=== PATIENT | male | born 1960 | race Caucasian/White ===

== ENCOUNTER 2024-01-17 05:35 | Day surgery (SDC) | payer OTHER ==
[~2024-01-17 05:35] MED LIST: ADVAIR; ALTACE10 MG PO; ASPIR 8181 MG PO; GLUCOPHA PO; GLYBURIDE PO; LANTUS SOL100 UNIT/1; SINGULAIR10 MG PO; STIOLTO RESPIMAT4 GM; TIRZEPATIDE 10 MG; XIGDUO XR 5 MG1 EAC1; ZOCOR40 MG PO
[2024-01-17] MEDS ORDERED: CEFAZOLIN SODIUM 1,000 MG VIAL ONE (07:12)
[2024-01-17] MEDS ORDERED: BUPIVACAINE HCL/MPF 0.5% 30ML VIAL ONE (07:21)
[2024-01-17] MEDS ORDERED: TYLENOL ARTHRI650 MG PO (10:35)
[2024-01-17] MEDS ORDERED: TRAMADOL HCL50 MG PO (10:35)
[2024-01-17] MEDS ORDERED: MIRALAX17 GM PO (10:35)
[2024-01-17] MEDS ORDERED: KETO10TA2 PO (10:35)
[2024-01-17] MEDS ORDERED: METOPROLOL SUCCINATE 25 MG TAB.SR.24H PO ONE (12:15)
== END 2024-01-17 14:10 | disposition home or self-care (01) ==
LOC: CIR.AMB 05:35
PROVIDERS: ATTEND Surgery
DX: K40.90 Unilateral inguinal hernia, without obstruction or gangrene, not specified as recurrent (principal); Z53.8 Procedure and treatment not carried out for other reasons; I49.9 Cardiac arrhythmia, unspecified

== ENCOUNTER 2024-04-10 05:36 | Day surgery (SDC) | payer OTHER ==
[2024-04-03 13:08] VITALS: BP 127/82
[~2024-04-10 05:36] MED LIST changes: +KETO10TA2 PO; +MIRALAX17 GM PO; +TRAMADOL HCL50 MG PO; +TYLENOL ARTHRI650 MG PO
[2024-04-10] MEDS ORDERED: BUPIVACAINE HCL/MPF 0.5% 30ML VIAL ONE (07:09)
[2024-04-10] MEDS ORDERED: CEFAZOLIN SODIUM 1,000 MG VIAL ONE (07:09)
[2024-04-10] MEDS ORDERED: SUGAMMADEX SODIUM 200 MG/2 ML VIAL IV ONE (09:03)
[2024-04-10] MEDS ORDERED: TYLENOL ARTHRI650 MG PO (09:15)
[2024-04-10] MEDS ORDERED: MIRALAX17 GM PO (09:15)
[2024-04-10] MEDS ORDERED: KETO10TA2 PO (09:15)
[2024-04-10] MEDS ORDERED: TRAMADOL HCL50 MG PO (09:15)
[2024-04-10] MEDS ORDERED: MORPHINE SULFATE 4 MG/ML VIAL IV ONE ×2 (09:40→10:10)
== END 2024-04-10 10:50 | disposition home or self-care (01) ==
LOC: CIR.AMB 05:36
PROVIDERS: ATTEND Surgery
DX: K40.90 Unilateral inguinal hernia, without obstruction or gangrene, not specified as recurrent (principal); K42.0 Umbilical hernia with obstruction, without gangrene; I10 Essential (primary) hypertension; E78.5 Hyperlipidemia, unspecified
CPT/HCPCS: 49650; 49592; C1781